=== PATIENT | female | born 1950 | race Caucasian/White ===

== ENCOUNTER 2021-07-03 10:01 | Inpatient (IN) | payer MEDICARE, OTHER ==
[~2021-07-03] VITALS: Ht 177.8 cm; Wt 103.9 kg
[~2021-07-03 10:01] MED LIST: ABILIFY15 MG PO; CYMBALTA60 MG PO; DEXILANT30 MG PO; LORAZEPAM1 MG PO; MAGOX 400400 MG PO; NEURONTIN 400400 MG PO; NORCO 7.5-3251 EACH PO; POTASSIUM CHLO10 ME1 PO; SYNTHROID112 MCG PO; TOPAMAX100 MG PO; VITAMIN D31250 MCG PO
[2021-07-03 11:58] LABS: HEMOGLOBIN 14.8 gm/dl (12.3-15.3); RED BLOOD COUNT 4.82 M/UL (4.00-5.10); WHITE BLOOD COUNT 8.5 K/UL (4.5-11.0)
[2021-07-03 12:25] LABS: BUN/CREATININE RATIO 20 (0-10)
[2021-07-03] MEDS ORDERED: PROPRANOLOL HCL20 MG PO (15:40)
[2021-07-03] MEDS ORDERED: METRONIDAZOLE500 MG PO (15:40)
[2021-07-03] MEDS ORDERED: CIPRO500 MG PO (15:41)
[2021-07-03] MEDS ORDERED: HAIR, SKIN & N1 EACH PO (15:41)
[2021-07-03] MEDS ORDERED: CAL MAG ZINC +1 EAC1 PO (15:42)
[2021-07-04 07:36] LABS: HEMOGLOBIN 13.8 gm/dl (12.3-15.3); RED BLOOD COUNT 4.69 M/UL (4.00-5.10)
[2021-07-04 07:40] LABS: WHITE BLOOD COUNT 5.7 K/UL (4.5-11.0)
[2021-07-04 07:49] LABS: BUN/CREATININE RATIO 23 (0-10)
== END 2021-07-04 14:32 | disposition home or self-care (01) | DRG 390 ==
LOC: ER1 10:01 → MED SURG 4 15:19 → CDU 15:19 → MED SURG 4 17:18
PROVIDERS: Emergency Medicine; Physician Assistant Medical; ADMIT Internal Medicine
DX: K56.51 Intestinal adhesions [bands], with partial obstruction (principal); K21.9 Gastro-esophageal reflux disease without esophagitis; Z20.822 Contact with and (suspected) exposure to COVID-19; F32.A Depression, unspecified; F41.9 Anxiety disorder, unspecified; E03.9 Hypothyroidism, unspecified; F17.210 Nicotine dependence, cigarettes, uncomplicated; F10.10 Alcohol abuse, uncomplicated; F12.90 Cannabis use, unspecified, uncomplicated; E06.3 Autoimmune thyroiditis; Z88.1 Allergy status to other antibiotic agents; Z91.040 Latex allergy status; Z82.49 Family history of ischemic heart disease and other diseases of the circulatory system; Z83.3 Family history of diabetes mellitus
CPT/HCPCS: 36415; 80048; 80053; 81001; 82550; 82553; 83605; 83690; 83735; 83874; 84484; 85025; 85027; 96374; 96375; 96376; 99285; C9113; J1650; J2270; J2405; Q9967; U0002